=== PATIENT | male | born 1950 | race Caucasian/White ===

== ENCOUNTER 2016-11-25 08:29 | Inpatient (IN) | payer BC ==
[~2016-11-25] VITALS: Ht 182.9 cm; Wt 144.6 kg
[~2016-11-25 08:29] MED LIST: ADVIL200 MG PO; ALEVE220 MG PO; ASPIR 8181 M1 PO; ASPIR-LOW81 MG PO; ASPIR-TRIN325 M1 PO; BENADRYL25 MG PO; BUMETANIDE2 MG PO; CALCIUM 250+D1 EACH PO; CALCIUM 500 +1 EACH PO; CATAPRES0.1 MG PO; CENTRUM SILVER1 EAC3 PO; CHEMO; CITRACAL PLUS1 EAC1 PO; CLONIDINE HCL0.1 MG PO; COMPAZINE10 MG PO; COUMADIN2.5 MG PO; DEXAMETHASONE4 MG PO; ENDOCET 5-3251 EACH PO; HYDROCHLOROTHIA25 MG PO; KEFLEX500 MG PO; LANTUS 3 M100 UNITS1 SC; METFORMIN HCL500 MG PO; NON-ASPIRIN EX500 M2 PO; OS-CAL 500+D T1 EAC1 PO; OXYCODONE HCL5 MG PO; REVLIMID25 MG PO; ROCEPHIN1000 MG PO; SENOKOT,SENN1 TABLET PO; TRAMADOL HCL50 MG PO; TYLENOL ARTHRI650 MG PO; VALTREX1000 MG PO; VERAPAMIL HCL240 MG PO
[2016-11-25 09:05] LABS: HEMATOCRIT 37.4 % (38.0-50.0); MCH 29.5 PG (29.0-34.0); MCHC 33.2 G/DL (30.0-36.0); MEAN PLAT.VOLUME 10.9 uM^3 (9.0-12.4); RBC DIS.WIDTH-CV 15.4 % (11.8-14.6); WHITE BLOOD COUNT 8.9 K/uL (4.1-10.2)
[2016-11-25 09:10] LABS: PLATELET COUNT 140 K/uL (156-360)
[2016-11-25 09:16] LABS: CHLORIDE 88 mEq/L (99-109); POTASSIUM 3.5 mEq/L (3.7-5.4); SODIUM 127 mEq/L (136-147)
[2016-11-25 09:18] LABS: GLUCOSE 308 mg/dL (70-99)
[2016-11-25 09:19] LABS: ANION GAP 16 MEQ/L (2-14)
[2016-11-25 09:22] LABS: GFR ESTIMATE (CALCULATED) 50 mL/min/; UREA NITROGEN (BUN) 33 mg/dL (9-23)
[2016-11-25] MEDS ORDERED: DECADRON4 MG PO (12:23)
[2016-11-25] MEDS ORDERED: ALEVE220 MG PO (12:25)
[2016-11-25 12:42] LABS: ERTH.SED.RATE 56 MM/HR (0-20)
[2016-11-25 15:37] VITALS: BP 142/67
[2016-11-25 16:16] LABS: ADD MIUA? YES; BILIRUBIN NEGATIVE; BLOOD LARGE; COLOR YELLOW ((YELLOW)); GLUCOSE (STRIP) 50; KETONES NEGATIVE; LEUKOCYTES NEGATIVE; NITRITE NEGATIVE; PROTEIN (STRIP) 30; SPECIFIC GRAVITY 1.018 (1.000-1.030); UROBILINOGEN 0.2 MG/DL (0.2-1.0)
[2016-11-25 16:57] LABS: BACTERIA RARE /HPF; EPITHELIAL CELLS RARE /HPF; MUCUS TRACE /LPF; RED BLOOD CELLS 30-40 /HPF (0-5); WHITE BLOOD CELLS 0-5 /HPF (0-5)
[2016-11-25 17:21] LABS: POINT-OF-CARE METER ID UU14149397
[2016-11-25 19:29] VITALS: BP 139/68
[2016-11-25 20:30] LABS: ABS NEUTROPHIL COUNT 8.2; ANISOCYTOSIS 1+; BURR CELLS 1+; EOSINOPHIL ABS CT 0; INSTRUMENT ABS NEUTROPHIL CT 7.4 K/uL; OVALOCYTES 1+; PLAT.SUFFICIENCY ADEQUATE
[2016-11-25 22:52] VITALS: BP 134/60
[2016-11-26 06:40] LABS: POINT-OF-CARE METER ID UU14188577
[2016-11-26 08:11] LABS: HEMATOCRIT 33.5 % (38.0-50.0); MCH 29.6 PG (29.0-34.0); MCHC 33.4 G/DL (30.0-36.0); MCV 88.4 FL (86-99); PLATELET COUNT 128 K/uL (156-360); RBC DIS.WIDTH-CV 15.5 % (11.8-14.6); RBC DIS.WIDTH-SD 50.5 % (39-53); RED BLOOD COUNT 3.79 M/uL (4.00-5.50)
[2016-11-26 08:18] VITALS: BP 142/70
[2016-11-26 08:35] LABS: ANION GAP 9 MEQ/L (2-14); CHLORIDE 92 MEQ/L (99-109); POTASSIUM 3.8 MEQ/L (3.7-5.4); SAMPLE HEMOLYSIS CHECK 0; SAMPLE ICTERIC CHECK 0; SAMPLE LIPEMIA CHECK 0; SODIUM 127 MEQ/L (136-147); UREA NITROGEN (BUN) 49 mg/dL (9-23)
[2016-11-26 08:42] LABS: GFR ESTIMATE (CALCULATED) 26 mL/min/; GLUCOSE 147 mg/dL (70-99)
[2016-11-26 12:02] LABS: POINT-OF-CARE METER ID UU14149397
[2016-11-26 15:41] VITALS: BP 124/64
[2016-11-26 19:41] VITALS: BP 134/73
[2016-11-26 21:32] LABS: POINT-OF-CARE METER ID UU14149397
[2016-11-27] VITALS (7 sets, daily range): BP systolic 127–167; BP diastolic 59–78
[2016-11-27 07:19] LABS: HEMATOCRIT 33.8 % (38.0-50.0); MCH 29.2 PG (29.0-34.0); MCHC 33.7 G/DL (30.0-36.0); MCV 86.7 FL (86-99); MEAN PLAT.VOLUME 11.6 uM^3 (9.0-12.4); PLATELET COUNT 125 K/uL (156-360); RBC DIS.WIDTH-CV 15.9 % (11.8-14.6); RBC DIS.WIDTH-SD 50.4 % (39-53); WHITE BLOOD COUNT 9.2 K/uL (4.1-10.2)
[2016-11-27 07:55] LABS: ANION GAP 18 MEQ/L (2-14); CHLORIDE 92 MEQ/L (99-109); POTASSIUM 3.7 MEQ/L (3.7-5.4); SAMPLE HEMOLYSIS CHECK 0; SAMPLE ICTERIC CHECK 0; SAMPLE LIPEMIA CHECK 0; SODIUM 133 MEQ/L (136-147)
[2016-11-27 08:02] LABS: GFR ESTIMATE (CALCULATED) 14 mL/min/; GLUCOSE 129 mg/dL (70-99); UREA NITROGEN (BUN) 70 mg/dL (9-23)
[2016-11-27 11:06] LABS: UR CREATININE CONCENTRATION 263.7 MG/DL
[2016-11-27 21:17] LABS: POINT-OF-CARE METER ID UU14149397
[2016-11-28] VITALS (7 sets, daily range): BP systolic 85–140; BP diastolic 60–106
[2016-11-28 07:22] LABS: ANION GAP 20 MEQ/L (2-14); C3 COMPLEMENT 150 MG/DL (58-170); C4 COMPLEMENT 43 MG/DL (10-40); CHLORIDE 90 MEQ/L (99-109); GFR ESTIMATE (CALCULATED) 11 mL/min/; POTASSIUM 3.9 MEQ/L (3.7-5.4); SAMPLE HEMOLYSIS CHECK 0; SAMPLE ICTERIC CHECK 0; SAMPLE LIPEMIA CHECK 0; SODIUM 129 MEQ/L (136-147); UREA NITROGEN (BUN) 93 mg/dL (9-23)
[2016-11-28 07:23] LABS: GLUCOSE 206 mg/dL (70-99)
[2016-11-28 10:01] LABS: HEMATOCRIT 30.1 % (38.0-50.0); MCH 30.3 PG (29.0-34.0); MCHC 35.2 G/DL (30.0-36.0); PLATELET COUNT 114 K/uL (156-360); RBC DIS.WIDTH-CV 16.2 % (11.8-14.6); RBC DIS.WIDTH-SD 50.7 % (39-53)
[2016-11-28 10:48] LABS: ANION GAP 20 MEQ/L (2-14); CHLORIDE 92 MEQ/L (99-109); GFR ESTIMATE (CALCULATED) 11 mL/min/; GLUCOSE 207 mg/dL (70-99); POTASSIUM 3.8 MEQ/L (3.7-5.4); SAMPLE HEMOLYSIS CHECK 0; SAMPLE ICTERIC CHECK 0; SAMPLE LIPEMIA CHECK 0; SODIUM 131 MEQ/L (136-147); UREA NITROGEN (BUN) 100 mg/dL (9-23)
[2016-11-28 12:03] LABS: ALKALINE PHOSPHATASE 67 IU/L (3-129); DIRECT BILIRUBIN 0.5 mg/dL (0.0-0.3); TOTAL BILIRUBIN 0.8 MG/DL (0.0-1.0)
[2016-11-28 22:26] LABS: POINT-OF-CARE METER ID UU13113731; POINT-OF-CARE USER ID LABHNS84
[2016-11-28 23:20] LABS: METH RESISTANT S AUREUS PCR NEGATIVE (NEGATIVE)
[2016-11-28 23:21] LABS: PROBE CHECK PASS; SPECIMEN PROCESSING CONTROL PASS
[2016-11-29] VITALS (20 sets, daily range): BP systolic 121–168; BP diastolic 54–75
[2016-11-29 05:01] LABS: CHLORIDE 93 mEq/L (99-109); POTASSIUM 4.1 mEq/L (3.7-5.4); SODIUM 129 mEq/L (136-147)
[2016-11-29 05:02] LABS: MAGNESIUM 2.3 mg/dL (1.3-2.7)
[2016-11-29 05:03] LABS: GLUCOSE 213 mg/dL (70-99)
[2016-11-29 05:04] LABS: ANION GAP 18 MEQ/L (2-14)
[2016-11-29 05:07] LABS: GFR ESTIMATE (CALCULATED) 8 mL/min/
[2016-11-29 05:09] LABS: UREA NITROGEN (BUN) 137 mg/dL (9-23)
[2016-11-29 05:43] LABS: ABS NEUTROPHIL COUNT 11.7; ANISOCYTOSIS 1+; EOSINOPHIL ABS CT 0; INSTRUMENT ABS NEUTROPHIL CT 11.1 K/uL; LYMPHOCYTES 1.7 % (15.0-45.0); MACROCYTES 1+; MCH 28.8 PG (29.0-34.0); MCHC 34.3 G/DL (30.0-36.0); MCV 84.1 FL (86-99); MEAN PLAT.VOLUME 12.1 uM^3 (9.0-12.4); OVALOCYTES 1+; PLAT.SUFFICIENCY ADEQUATE; PLATELET COUNT 118 K/uL (156-360); RBC DIS.WIDTH-CV 15.9 % (11.8-14.6); RBC DIS.WIDTH-SD 48.7 % (39-53); RED BLOOD COUNT 3.33 M/uL (4.00-5.50); WHITE BLOOD COUNT 12.3 K/uL (4.1-10.2)
[2016-11-29 05:45] LABS: PLATELET CLUMPS PRESENT - PLATELET C
[2016-11-29 06:04] LABS: INTER. NORMALIZED RATIO 1.2; PTT 37.8 (25-32)
[2016-11-29 06:17] LABS: SEG.NEUTROPHILS 93.9 % (46.0-76.0)
[2016-11-29 06:18] LABS: BAND NEUTROPHILS 0.9 % (0-8.0)
[2016-11-29 07:53] LABS: C DIFF TOXIN NEGATIVE (NEGATIVE); PROBE CHECK PASS; SPECIMEN PROCESSING CONTROL PASS
[2016-11-29 08:46] LABS: POINT-OF-CARE METER ID UU13113803; POINT-OF-CARE USER ID AGYTJR
[2016-11-29 09:29] LABS: ADD MIUA? YES; BILIRUBIN NEGATIVE; BLOOD MODERATE; COLOR AMBER ((YELLOW)); GLUCOSE (STRIP) 50; KETONES NEGATIVE; LEUKOCYTES TRACE; NITRITE NEGATIVE; PROTEIN (STRIP) 100; UROBILINOGEN 0.2 MG/DL (0.2-1.0)
[2016-11-29 09:38] LABS: BACTERIA NONE SEEN /HPF; EPITHELIAL CELLS NONE SEEN /HPF; MUCUS NONE SEEN /LPF; RED BLOOD CELLS 15-20 /HPF (0-5); UCUL ADDED? NO
[2016-11-29 11:55] LABS: HBSG INDEX 0.21
[2016-11-29 11:56] LABS: AHBS INDEX 0.04; HEPATITIS B SURFACE ANTIBODY Nonreactive
[2016-11-29 12:53] LABS: POINT-OF-CARE METER ID UU13113803; POINT-OF-CARE USER ID AGYTJR
[2016-11-29 17:17] LABS: POINT-OF-CARE METER ID UU13113803; POINT-OF-CARE USER ID AGYTJR
[2016-11-29 22:18] LABS: POINT-OF-CARE METER ID UU13113803; POINT-OF-CARE USER ID RADDRS44
[2016-11-30] VITALS (14 sets, daily range): BP systolic 102–143; BP diastolic 46–76
[2016-11-30 05:00] LABS: MCHC 34.6 G/DL (30.0-36.0); MCV 83.8 FL (86-99); MEAN PLAT.VOLUME 12.2 uM^3 (9.0-12.4); NRBC (%) 0.1 /100 WBC (0-0); PLATELET COUNT 138 K/uL (156-360); RBC DIS.WIDTH-CV 16.4 % (11.8-14.6); RBC DIS.WIDTH-SD 50.2 % (39-53); RED BLOOD COUNT 3.34 M/uL (4.00-5.50); WHITE BLOOD COUNT 16.2 K/uL (4.1-10.2)
[2016-11-30 05:16] LABS: CHLORIDE 93 mEq/L (99-109); POTASSIUM 4.2 mEq/L (3.7-5.4); SODIUM 132 mEq/L (136-147)
[2016-11-30 05:17] LABS: MAGNESIUM 2.3 mg/dL (1.3-2.7)
[2016-11-30 05:18] LABS: GLUCOSE 217 mg/dL (70-99)
[2016-11-30 05:20] LABS: ANION GAP 18 MEQ/L (2-14)
[2016-11-30 05:22] LABS: GFR ESTIMATE (CALCULATED) 9 mL/min/
[2016-11-30 05:26] LABS: UREA NITROGEN (BUN) 130 mg/dL (9-23)
[2016-11-30 05:36] LABS: ABS NEUTROPHIL COUNT 15.9; EOSINOPHIL ABS CT 0; HEMATOLOGY COMMENT 1 SN; INSTRUMENT ABS NEUTROPHIL CT 14.4 K/uL; SEG.NEUTROPHILS 98.3 % (46.0-76.0)
[2016-11-30 11:46] LABS: HEMATOCRIT 25.7 % (38.0-50.0); MCV 85.4 FL (86-99)
[2016-11-30 16:59] LABS: HEMATOCRIT 24.2 % (38.0-50.0); MCV 86.1 FL (86-99)
[2016-11-30 23:17] LABS: HEMATOCRIT 23.7 % (38.0-50.0); MCV 84.6 FL (86-99)
[2016-11-30 23:28] LABS: POINT-OF-CARE USER ID RADDRS44
[2016-12-01] VITALS (12 sets, daily range): BP systolic 117–164; BP diastolic 43–73
[2016-12-01 05:34] LABS: HEMATOCRIT 22.8 % (38.0-50.0); MCH 29.7 PG (29.0-34.0); MCHC 34.6 G/DL (30.0-36.0); MCV 85.7 FL (86-99); MEAN PLAT.VOLUME 13.2 uM^3 (9.0-12.4); NRBC (%) 0.2 /100 WBC (0-0); PLATELET COUNT 149 K/uL (156-360); RBC DIS.WIDTH-CV 17.2 % (11.8-14.6); RBC DIS.WIDTH-SD 53.6 % (39-53); WHITE BLOOD COUNT 18.9 K/uL (4.1-10.2)
[2016-12-01 05:39] LABS: INTER. NORMALIZED RATIO 1.3; PROTHROMBIN TIME 13.4 (9.2-11.2)
[2016-12-01 06:08] LABS: RED BLOOD COUNT 2.66 M/uL (4.00-5.50)
[2016-12-01 06:12] LABS: ANION GAP 17 MEQ/L (2-14); CHLORIDE 92 MEQ/L (99-109); GFR ESTIMATE (CALCULATED) 10 mL/min/; GLUCOSE 170 mg/dL (70-99); MAGNESIUM 3.1 mg/dl (1.3-2.7); POTASSIUM 4.2 MEQ/L (3.7-5.4); SAMPLE HEMOLYSIS CHECK 0; SAMPLE ICTERIC CHECK 0; SAMPLE LIPEMIA CHECK 0; SODIUM 133 MEQ/L (136-147)
[2016-12-01 06:34] LABS: UREA NITROGEN (BUN) 123 mg/dL (9-23)
[2016-12-01 06:57] LABS: ABS NEUTROPHIL COUNT 17.7; ANISOCYTOSIS 3+; ATYPICAL LYMPHOCYTE 0.9 %; BAND NEUTROPHILS 4.3 % (0-8.0); EOSINOPHIL ABS CT 0; INSTRUMENT ABS NEUTROPHIL CT 16.3 K/uL; LYMPHOCYTES 2.6 % (15.0-45.0); MACROCYTES 1+; METAMYELOCYTES 0.9 %; MICROCYTOSIS 1+; PLAT.SUFFICIENCY DECREASED; SEG.NEUTROPHILS 89.6 % (46.0-76.0); SPHEROCYTES 1+; TARGET CELLS 1+
[2016-12-01 10:49] LABS: HEMATOCRIT 23.4 % (38.0-50.0); MCV 85.4 FL (86-99)
[2016-12-01 13:22] LABS: POINT-OF-CARE METER ID UU14174217
[2016-12-01 17:57] LABS: HEMATOCRIT 24.8 % (38.0-50.0); MCV 86.1 FL (86-99)
[2016-12-01 18:11] LABS: POINT-OF-CARE METER ID UU14174217
[2016-12-01 20:15] LABS: HEMATOCRIT 23.9 % (38.0-50.0); MCHC 34.7 G/DL (30.0-36.0); MCV 86.3 FL (86-99); MEAN PLAT.VOLUME 12.7 uM^3 (9.0-12.4); NRBC (%) 0.3 /100 WBC (0-0); PLATELET COUNT 167 K/uL (156-360); RBC DIS.WIDTH-CV 17.5 % (11.8-14.6); RED BLOOD COUNT 2.77 M/uL (4.00-5.50); WHITE BLOOD COUNT 24.6 K/uL (4.1-10.2)
[2016-12-01 20:42] LABS: INTER. NORMALIZED RATIO 1.3; PROTHROMBIN TIME 13.8 (9.2-11.2); PTT 32.4 (25-32)
[2016-12-01 20:45] LABS: ABS NEUTROPHIL COUNT 22.2; ANISOCYTOSIS 2+; BAND NEUTROPHILS 10.7 % (0-8.0); EOSINOPHIL ABS CT 0.2; EOSINOPHILS 0.9 % (0-5.0); HYPOCHROMASIA 3+; INSTRUMENT ABS NEUTROPHIL CT 19.2 K/uL; LYMPHOCYTES 1.3 % (15.0-45.0); MACROCYTES 1+; MICROCYTOSIS 1+; NUCLEATED RBC'S 0.4; PLAT.SUFFICIENCY ADEQUATE; POIKILOCYTOSIS 1+; SEG.NEUTROPHILS 79.5 % (46.0-76.0); TARGET CELLS 1+
[2016-12-01 22:46] LABS: HEMATOCRIT 23.6 % (38.0-50.0); MCV 85.5 FL (86-99)
[2016-12-01 23:40] LABS: POINT-OF-CARE METER ID UU14162636
[2016-12-02] VITALS: BP 123/49
[2016-12-02 04:00] VITALS: BP 156/55
[2016-12-02 06:01] LABS: HEMATOCRIT 21.9 % (38.0-50.0); MCHC 35.6 G/DL (30.0-36.0); MCV 86.9 FL (86-99); MEAN PLAT.VOLUME 12.8 uM^3 (9.0-12.4); NRBC (%) 0.3 /100 WBC (0-0); PLATELET COUNT 154 K/uL (156-360); RBC DIS.WIDTH-CV 17.8 % (11.8-14.6); RBC DIS.WIDTH-SD 55.6 % (39-53); RED BLOOD COUNT 2.52 M/uL (4.00-5.50); WHITE BLOOD COUNT 23.1 K/uL (4.1-10.2)
[2016-12-02 06:41] LABS: ANION GAP 19 MEQ/L (2-14); CHLORIDE 97 MEQ/L (99-109); GFR ESTIMATE (CALCULATED) 11 mL/min/; GLUCOSE 142 mg/dL (70-99); MAGNESIUM 2.9 mg/dl (1.3-2.7); POTASSIUM 4.6 MEQ/L (3.7-5.4); SAMPLE HEMOLYSIS CHECK 0; SAMPLE ICTERIC CHECK 0; SAMPLE LIPEMIA CHECK 0; SODIUM 138 MEQ/L (136-147)
[2016-12-02 06:48] LABS: UREA NITROGEN (BUN) 106 mg/dL (9-23)
[2016-12-02 07:51] LABS: ABS NEUTROPHIL COUNT 20.8; ANISOCYTOSIS 2+; ATYPICAL LYMPHOCYTE 0.4 %; BAND NEUTROPHILS 5.6 % (0-8.0); BASOPHILS 0.4 %; EOSINOPHIL ABS CT 0.1; EOSINOPHILS 0.4 % (0-5.0); HYPOCHROMASIA 1+; INSTRUMENT ABS NEUTROPHIL CT 17.7 K/uL; LYMPHOCYTES 2.2 % (15.0-45.0); MACROCYTES 2+; METAMYELOCYTES 2.1 %; MICROCYTOSIS 1+; MYELOCYTES 3.4 %; NUCLEATED RBC'S 1.3; OVALOCYTES 1+; PLAT.SUFFICIENCY ADEQUATE; SEG.NEUTROPHILS 84.6 % (46.0-76.0); STOMATOCYTES 1+
[2016-12-02 08:00] VITALS: BP 154/65
[2016-12-02 12:00] VITALS: BP 134/47
[2016-12-02 12:16] LABS: HEMATOCRIT 25.7 % (38.0-50.0); MCV 86.2 FL (86-99)
[2016-12-02 12:30] LABS: POINT-OF-CARE METER ID UU13113803
[2016-12-02 16:00] VITALS: BP 149/61
[2016-12-02 16:48] LABS: HEMATOCRIT 23.8 % (38.0-50.0); MCV 86.9 FL (86-99)
[2016-12-02 18:34] LABS: POINT-OF-CARE METER ID UU13113803
[2016-12-02 20:00] VITALS: BP 160/62
[2016-12-02 23:44] LABS: HEMATOCRIT 23.1 % (38.0-50.0); MCV 86.2 FL (86-99)
[2016-12-03] VITALS: BP 151/55
[2016-12-03 04:00] VITALS: BP 147/74
[2016-12-03 06:01] LABS: MCH 29.3 PG (29.0-34.0); MCHC 33.3 G/DL (30.0-36.0); MCV 87.9 FL (86-99); MEAN PLAT.VOLUME 13.9 uM^3 (9.0-12.4); NRBC (%) 0.4 /100 WBC (0-0); PLATELET COUNT 140 K/uL (156-360); RBC DIS.WIDTH-CV 17.4 % (11.8-14.6); RBC DIS.WIDTH-SD 55.4 % (39-53); RED BLOOD COUNT 2.73 M/uL (4.00-5.50); WHITE BLOOD COUNT 25.7 K/uL (4.1-10.2)
[2016-12-03 06:24] LABS: ANION GAP 18 MEQ/L (2-14); CHLORIDE 96 MEQ/L (99-109); GFR ESTIMATE (CALCULATED) 13 mL/min/; GLUCOSE 145 mg/dL (70-99); MAGNESIUM 2.8 mg/dl (1.3-2.7); POTASSIUM 4.1 MEQ/L (3.7-5.4); SAMPLE HEMOLYSIS CHECK 0; SAMPLE ICTERIC CHECK 0; SAMPLE LIPEMIA CHECK 0; SODIUM 137 MEQ/L (136-147); UREA NITROGEN (BUN) 86 mg/dL (9-23)
[2016-12-03 07:18] LABS: ABS NEUTROPHIL COUNT 24.1; ANISOCYTOSIS 2+; BAND NEUTROPHILS 10.5 % (0-8.0); BASOPHILS 0.9 %; EOSINOPHIL ABS CT 0; INSTRUMENT ABS NEUTROPHIL CT 17.6 K/uL; LYMPHOCYTES 1.7 % (15.0-45.0); MACROCYTES 1+; MYELOCYTES 1.8 %; NUCLEATED RBC'S 0.9; PLAT.SUFFICIENCY ADEQUATE; POLYCHROMASIA 1+; SEG.NEUTROPHILS 83.3 % (46.0-76.0)
[2016-12-03 11:00] VITALS: BP 152/55
[2016-12-03 12:00] VITALS: BP 158/56
[2016-12-03 12:22] LABS: POINT-OF-CARE METER ID UU14174217
[2016-12-03 16:00] VITALS: BP 172/48
[2016-12-03 18:21] LABS: POINT-OF-CARE METER ID UU14174217
[2016-12-03 21:00] LABS: POINT-OF-CARE METER ID UU13113803
[2016-12-04 01:46] LABS: POINT-OF-CARE METER ID UU13113803
[2016-12-04 06:15] LABS: POINT-OF-CARE METER ID UU14174217
[2016-12-04 06:47] LABS: HEMATOCRIT 22.2 % (38.0-50.0); MCH 30.4 PG (29.0-34.0); MCHC 34.2 G/DL (30.0-36.0); MCV 88.8 FL (86-99); NRBC (%) 0.1 /100 WBC (0-0); RBC DIS.WIDTH-SD 57.8 % (39-53); WHITE BLOOD COUNT 22.3 K/uL (4.1-10.2)
[2016-12-04 06:50] LABS: ALKALINE PHOSPHATASE 70 IU/L (3-129); ANION GAP 18 MEQ/L (2-14); CHLORIDE 94 MEQ/L (99-109); GLUCOSE 118 mg/dL (70-99); POTASSIUM 4.3 MEQ/L (3.7-5.4); SAMPLE HEMOLYSIS CHECK 0; SAMPLE ICTERIC CHECK 0; SAMPLE LIPEMIA CHECK 0; SODIUM 133 MEQ/L (136-147)
[2016-12-04 06:51] LABS: GFR ESTIMATE (CALCULATED) 10 mL/min/; TOTAL BILIRUBIN 0.5 MG/DL (0.0-1.0); UREA NITROGEN (BUN) 108 mg/dL (9-23)
[2016-12-04 07:22] LABS: ABS NEUTROPHIL COUNT 18.8; ANISOCYTOSIS 2+; ATYPICAL LYMPHOCYTE 0.4 %; BAND NEUTROPHILS 1.7 % (0-8.0); BASOPHILS 0.4 %; EOSINOPHIL ABS CT 0; HYPOCHROMASIA 1+; INSTRUMENT ABS NEUTROPHIL CT 14.7 K/uL; LYMPHOCYTES 3.5 % (15.0-45.0); MACROCYTES 2+; METAMYELOCYTES 3.5 %; MYELOCYTES 5.7 %; PLAT.SUFFICIENCY ADEQUATE; PLATELET COUNT 170 K/uL (156-360); POLYCHROMASIA 1+; SEG.NEUTROPHILS 82.6 % (46.0-76.0); SMUDGE CELLS 1.3
[2016-12-04 08:00] VITALS: BP 158/64
[2016-12-04 12:00] VITALS: BP 129/83
[2016-12-04 14:12] LABS: C DIFF TOXIN NEGATIVE (NEGATIVE)
[2016-12-04 14:16] LABS: PROBE CHECK PASS; SPECIMEN PROCESSING CONTROL PASS
[2016-12-04 14:58] LABS: POINT-OF-CARE METER ID UU14174217
[2016-12-04 17:00] VITALS: BP 152/46
[2016-12-04 18:17] LABS: POINT-OF-CARE METER ID UU14174217
[2016-12-04 19:30] VITALS: BP 152/46
[2016-12-04 22:00] VITALS: BP 154/53
[2016-12-05] VITALS (7 sets, daily range): BP systolic 132–176; BP diastolic 56–85
[2016-12-05 00:08] LABS: POINT-OF-CARE METER ID UU14174217
[2016-12-05 06:02] LABS: POINT-OF-CARE METER ID UU14162508
[2016-12-05 06:51] LABS: ABSOLUTE RETICULOCYTE CT. 0.1 M/uL (0.02-0.08); IMM.RETIC FRACTION 29.4 % (3-19); RETIC HGB EQUIVALENT 31.4 (28-36)
[2016-12-05 06:52] LABS: RETICULOCYTE COUNT 2.8 % (0.5-1.8)
[2016-12-05 07:07] LABS: HEMATOCRIT 25.3 % (38.0-50.0); MCH 30.1 PG (29.0-34.0); MCV 88.5 FL (86-99); NRBC (%) 0.1 /100 WBC (0-0); RBC DIS.WIDTH-CV 17.6 % (11.8-14.6); RBC DIS.WIDTH-SD 55.8 % (39-53); RED BLOOD COUNT 2.86 M/uL (4.00-5.50); WHITE BLOOD COUNT 17.7 K/uL (4.1-10.2)
[2016-12-05 07:21] LABS: IRON 24 MCG/DL (35-150)
[2016-12-05 07:25] LABS: ABS NEUTROPHIL COUNT 15.4; ANISOCYTOSIS 1+; BAND NEUTROPHILS 4.3 % (0-8.0); BASOPHILS 0.9 %; EOSINOPHIL ABS CT 0; INSTRUMENT ABS NEUTROPHIL CT 12.4 K/uL; MACROCYTES 1+; METAMYELOCYTES 3.4 %; MYELOCYTES 5.2 %; PLAT.SUFFICIENCY DECREASED; SEG.NEUTROPHILS 82.7 % (46.0-76.0); SMUDGE CELLS 3.4
[2016-12-05 07:30] LABS: PLATELET COUNT 108 K/uL (156-360)
[2016-12-05 07:34] LABS: ALKALINE PHOSPHATASE 70 IU/L (3-129); ANION GAP 15 MEQ/L (2-14); ANION GAP 16 MEQ/L (2-14); CHLORIDE 97 MEQ/L (99-109); CHLORIDE 98 MEQ/L (99-109); GFR ESTIMATE (CALCULATED) 12 mL/min/; GFR ESTIMATE (CALCULATED) 13 mL/min/; GLUCOSE 105 mg/dL (70-99); GLUCOSE 109 mg/dL (70-99); POTASSIUM 3.7 MEQ/L (3.7-5.4); POTASSIUM 3.8 MEQ/L (3.7-5.4); SAMPLE HEMOLYSIS CHECK 0; SAMPLE ICTERIC CHECK 0; SAMPLE LIPEMIA CHECK 0; SODIUM 134 MEQ/L (136-147); SODIUM 135 MEQ/L (136-147); TOTAL BILIRUBIN 0.5 MG/DL (0.0-1.0); UREA NITROGEN (BUN) 73 mg/dL (9-23); UREA NITROGEN (BUN) 74 mg/dL (9-23)
[2016-12-05 08:34] LABS: FERRITIN 451 NG/ML (22-322)
[2016-12-05 12:15] LABS: POINT-OF-CARE METER ID UU14162508
[2016-12-05 16:04] LABS: POINT-OF-CARE METER ID UU14162508
[2016-12-05 22:59] LABS: POINT-OF-CARE METER ID UU14162508
[2016-12-06 03:10] VITALS: BP 150/64
[2016-12-06 05:01] LABS: CHLORIDE 98 mEq/L (99-109); POTASSIUM 3.7 mEq/L (3.7-5.4); SODIUM 134 mEq/L (136-147)
[2016-12-06 05:03] LABS: GLUCOSE 131 mg/dL (70-99)
[2016-12-06 05:05] LABS: ANION GAP 18 MEQ/L (2-14)
[2016-12-06 05:08] LABS: UREA NITROGEN (BUN) 86 mg/dL (9-23)
[2016-12-06 05:36] LABS: GFR ESTIMATE (CALCULATED) 10 mL/min/
[2016-12-06 05:59] LABS: POINT-OF-CARE METER ID UU14162508
[2016-12-06 07:12] VITALS: BP 161/67
[2016-12-06 08:50] LABS: HEMATOCRIT 25.2 % (38.0-50.0); MCH 29.4 PG (29.0-34.0); MCHC 32.9 G/DL (30.0-36.0); MCV 89.4 FL (86-99); MEAN PLAT.VOLUME 13.8 uM^3 (9.0-12.4); PLATELET COUNT 103 K/uL (156-360); RBC DIS.WIDTH-SD 54.5 % (39-53); RED BLOOD COUNT 2.82 M/uL (4.00-5.50); WHITE BLOOD COUNT 14.7 K/uL (4.1-10.2)
[2016-12-06 15:58] VITALS: BP 167/73
[2016-12-06 20:47] VITALS: BP 171/74
[2016-12-06 23:43] VITALS: BP 168/72
[2016-12-07 06:45] VITALS: BP 137/60
[2016-12-07 08:25] LABS: HEMATOCRIT 28.5 % (38.0-50.0); MCH 29.5 PG (29.0-34.0); MCHC 32.3 G/DL (30.0-36.0); MCV 91.3 FL (86-99); RBC DIS.WIDTH-CV 16.8 % (11.8-14.6); RED BLOOD COUNT 3.12 M/uL (4.00-5.50); WHITE BLOOD COUNT 12.3 K/uL (4.1-10.2)
[2016-12-07 08:38] LABS: ANION GAP 14 MEQ/L (2-14); CHLORIDE 98 MEQ/L (99-109); GLUCOSE 118 mg/dL (70-99); POTASSIUM 3.9 MEQ/L (3.7-5.4); SAMPLE HEMOLYSIS CHECK 0; SAMPLE ICTERIC CHECK 0; SAMPLE LIPEMIA CHECK 0; SODIUM 137 MEQ/L (136-147); UREA NITROGEN (BUN) 59 mg/dL (9-23)
[2016-12-07 08:47] LABS: ABS NEUTROPHIL COUNT 11.4; ANISOCYTOSIS 1+; BAND NEUTROPHILS 1.7 % (0-8.0); BASOPHILS 0.9 %; EOSINOPHIL ABS CT 0; GFR ESTIMATE (CALCULATED) 14 mL/min/; INSTRUMENT ABS NEUTROPHIL CT 10.4 K/uL; LYMPHOCYTES 0.9 % (15.0-45.0); MACROCYTES 1+; MEAN PLAT.VOLUME 13.2 uM^3 (9.0-12.4); METAMYELOCYTES 0.9 %; PLAT.SUFFICIENCY ADEQUATE; SEG.NEUTROPHILS 91.3 % (46.0-76.0)
[2016-12-07 09:02] LABS: PLATELET COUNT 151 K/uL (156-360)
[2016-12-07 15:40] VITALS: BP 145/62
[2016-12-07 22:04] LABS: POINT-OF-CARE METER ID UU14208750
[2016-12-07 23:57] VITALS: BP 146/66
[2016-12-08 06:29] LABS: POINT-OF-CARE METER ID UU14208750
[2016-12-08 07:50] VITALS: BP 167/72
[2016-12-08 08:16] LABS: EOSINOPHIL (%) 2.6 % (0-5); EOSINOPHIL COUNT 0.3 K/uL (0-0.3); HEMATOCRIT 25.5 % (38.0-50.0); IMMATURE GRANULOCYTE (%) 1.8 % (0.0-0.7); IMMATURE GRANULOCYTE COUNT 0.2 K/uL; INSTRUMENT ABS NEUTROPHIL CT 8.4 K/uL; LYMPHOCYTE COUNT 0.2 K/uL (1.0-2.8); MCH 29.9 PG (29.0-34.0); MCHC 32.9 G/DL (30.0-36.0); MCV 90.7 FL (86-99); MEAN PLAT.VOLUME 12.5 uM^3 (9.0-12.4); MONOCYTE (%) 4.9 % (3-12); MONOCYTE COUNT 0.5 K/uL (0-0.8); NEUTROPHIL (%) 88.1 % (45-76); NEUTROPHIL COUNT 8.4 K/uL (1.8-6.4); PLATELET COUNT 153 K/uL (156-360); RBC DIS.WIDTH-CV 16.1 % (11.8-14.6); RBC DIS.WIDTH-SD 53.3 % (39-53); RED BLOOD COUNT 2.81 M/uL (4.00-5.50); WHITE BLOOD COUNT 9.6 K/uL (4.1-10.2)
[2016-12-08 08:47] LABS: ANION GAP 16 MEQ/L (2-14); CHLORIDE 98 MEQ/L (99-109); POTASSIUM 3.5 MEQ/L (3.7-5.4); SAMPLE HEMOLYSIS CHECK 0; SAMPLE ICTERIC CHECK 0; SAMPLE LIPEMIA CHECK 0; SODIUM 134 MEQ/L (136-147)
[2016-12-08 08:53] LABS: GFR ESTIMATE (CALCULATED) 12 mL/min/; GLUCOSE 132 mg/dL (70-99); UREA NITROGEN (BUN) 77 mg/dL (9-23)
[2016-12-08 12:23] LABS: POINT-OF-CARE METER ID UU14208750
[2016-12-08 14:00] VITALS: BP 155/75
[2016-12-08 15:51] VITALS: BP 158/67
[2016-12-08 16:23] LABS: POINT-OF-CARE METER ID UU14208750
[2016-12-08 19:19] LABS: POINT-OF-CARE METER ID UU13113675
[2016-12-08 19:39] VITALS: BP 147/67
[2016-12-08 22:51] VITALS: BP 143/62
[2016-12-09 03:46] VITALS: BP 137/65
[2016-12-09 06:58] LABS: ANION GAP 14 MEQ/L (2-14); CHLORIDE 98 MEQ/L (99-109); GFR ESTIMATE (CALCULATED) 17 mL/min/; GLUCOSE 119 mg/dL (70-99); SAMPLE HEMOLYSIS CHECK 0; SAMPLE ICTERIC CHECK 0; SAMPLE LIPEMIA CHECK 0; SODIUM 136 MEQ/L (136-147); UREA NITROGEN (BUN) 47 mg/dL (9-23)
[2016-12-09 07:00] VITALS: BP 142/67
[2016-12-09 14:55] VITALS: BP 160/96
[2016-12-10] VITALS: BP 157/68
[2016-12-10 06:49] LABS: ANION GAP 13 MEQ/L (2-14); CHLORIDE 98 MEQ/L (99-109); GFR ESTIMATE (CALCULATED) 14 mL/min/; GLUCOSE 125 mg/dL (70-99); POTASSIUM 3.8 MEQ/L (3.7-5.4); SAMPLE HEMOLYSIS CHECK 0; SAMPLE ICTERIC CHECK 0; SAMPLE LIPEMIA CHECK 0; SODIUM 133 MEQ/L (136-147); UREA NITROGEN (BUN) 70 mg/dL (9-23)
[2016-12-10 07:00] VITALS: BP 141/63
[2016-12-10] MEDS ORDERED: CLONIDINE HCL0.2 MG PO (13:13)
[2016-12-10] MEDS ORDERED: ALBUTEROL2.5 MG/0.5 AEROSOL (13:13)
[2016-12-10] MEDS ORDERED: FLORASTOR250 MG PO (13:14)
[2016-12-10] MEDS ORDERED: CALCIUM ACETAT667 MG PO (13:14)
[2016-12-10 13:15] LABS: POINT-OF-CARE USER ID PUTDRM
[2016-12-10] MEDS ORDERED: PREDNISONE20 MG PO (13:17)
[2016-12-10] MEDS ORDERED: BENADRYL25 MG PO (13:36)
[2016-12-10] MEDS ORDERED: HYDROXYZINE PAM25 MG PO (13:36)
[2016-12-10] MEDS ORDERED: OXYCODONE HCL5 MG PO (13:36)
[2016-12-10] MEDS ORDERED: FAMOTIDINE40 MG PO (13:45)
[2016-12-10 15:24] VITALS: BP 131/76
[2016-12-10 15:36] LABS: POINT-OF-CARE USER ID PUTDRM
== END 2016-12-10 17:35 | disposition designated cancer center or children's hospital (05) | DRG 871 ==
LOC: EME → EDBD 08:29 → 3EAST 11:08 → EDOF 11:08 → 4WEST 11:08 → 3EAST 13:57 → 4WEST 11-28 21:37 → 2EAST 12-05 02:08
PROVIDERS: Emergency Medicine; Hospitalist; Internal Medicine; Internal Medicine Critical Care Medicine; Internal Medicine Gastroenterology; Internal Medicine Nephrology; Physician Assistant; Specialist
PROC: 02HV33Z Insertion of Infusion Device into Superior Vena Cava, Percutaneous Approach (ICD-10-PCS; 2016-11-29)
PROC: 5A1D60Z (ICD-10-PCS; 2016-11-29)
PROC: 0DJ08ZZ Inspection of Upper Intestinal Tract, Via Natural or Artificial Opening Endoscopic (ICD-10-PCS; principal; 2016-12-01)
PROC: 30233N1 Transfusion of Nonautologous Red Blood Cells into Peripheral Vein, Percutaneous Approach (ICD-10-PCS; 2016-12-04)
PROC: 02HV33Z Insertion of Infusion Device into Superior Vena Cava, Percutaneous Approach (ICD-10-PCS; 2016-12-08)
DX: A40.0 Sepsis due to streptococcus, group A (principal); R65.20 Severe sepsis without septic shock; N17.0 Acute kidney failure with tubular necrosis; L03.115 Cellulitis of right lower limb; L03.116 Cellulitis of left lower limb; B37.0 Candidal stomatitis; C90.00 Multiple myeloma not having achieved remission; D63.0 Anemia in neoplastic disease; D69.6 Thrombocytopenia, unspecified; J45.41 Moderate persistent asthma with (acute) exacerbation; J20.9 Acute bronchitis, unspecified; D72.1 Eosinophilia; E83.39 Other disorders of phosphorus metabolism; E83.41 Hypermagnesemia; E83.51 Hypocalcemia; E86.0 Dehydration; E87.1 Hypo-osmolality and hyponatremia; E87.4 Mixed disorder of acid-base balance; E66.01 Morbid (severe) obesity due to excess calories; E87.6 Hypokalemia; E87.70 Fluid overload, unspecified; I10 Essential (primary) hypertension; I89.0 Lymphedema, not elsewhere classified; J98.11 Atelectasis; K20.9 Esophagitis, unspecified; M60.9 Myositis, unspecified; K25.9 Gastric ulcer, unspecified as acute or chronic, without hemorrhage or perforation; K59.00 Constipation, unspecified; T36.0X5A Adverse effect of penicillins, initial encounter; K76.89 Other specified diseases of liver; K92.0 Hematemesis; L27.0 Generalized skin eruption due to drugs and medicaments taken internally; M17.12 Unilateral primary osteoarthritis, left knee; R04.0 Epistaxis; E11.9 Type 2 diabetes mellitus without complications; R23.8 Other skin changes; Z68.42 Body mass index [BMI] 45.0-49.9, adult; Z79.4 Long term (current) use of insulin; Z79.84 Long term (current) use of oral hypoglycemic drugs; Z88.0 Allergy status to penicillin; Z92.21 Personal history of antineoplastic chemotherapy; Z96.651 Presence of right artificial knee joint
CPT/HCPCS: 71010; 71020; 71250; 73552; 73560; 73564; 73700; 73718; 74000; 74020; 74150; 76770; 78582; 80048; 80048 91; 80053; 80069; 80076; 81003; 82436; 82570; 82607; 82728; 82746; 82948; 83540; 83605; 83735; 83930; 83935; 84100; 84156; 84300; 84443; 84466; 84540; 85014; 85018; 85025; 85025 91; 85027; 85045; 85610; 85651; 85730; 86063; 86160; 86706; 86900; 86901; 86920; 87040; 87077; 87177; 87186; 87340; 87493; 87506; 87641; 87801; 89190; 93005; 93306; 93970; 94010; 94640; 94640 76; 94760; 94799; 97530 GO; 97530 GP; 99202; 99281; 99285; A6212; A9539; A9540; C1788; C9113; J0610; J0690; J0692; J0696; J1200; J1626; J1644; J1815; J1885; J1940; J2405; J2540; J2597; J2765; J2920; J2930; J3010; J3370; J7030; J7050; J7070; J7512; P9016; P9045; P9047; Q0177